=== PATIENT | male | born 1975 | race Caucasian/White ===

== ENCOUNTER 2016-09-16 15:10 | Observation (INO) | payer OTHER, MEDICAID ==
[2016-09-16 15:54] VITALS: O2SAT 98; BMI 24.7
[2016-09-16] MEDS ORDERED: Sodium Chloride 0.9% 1,000 ML IV STA ×2 (16:20→19:40)
--- NOTE | 2016-09-16 17:25 | ED PDOC ---
Arrival/HPI - General Chief Complaint: GI Problem Time Seen by Provider: 09/16/16 16:19 Historian: Patient - History of Present Illness Narrative History of Present Illness (Text): 09/16/16 17:21 40-year-old male presents today with a 5 day history of subjective fevers at home with cough and nasal congestion sore throat and frontal headache. Patient states he's been feeling dizzy. Patient states both his and his daughter has similar symptoms that just recently started. Patient denies chest pain or shortness of breath. He is complaining of low back pain but states that he hasn' t really been getting around a lot because he feels very fatigued. Patient states he has been unable to eat any food although he denies any abdominal pain. No other complaints Past Medical History - Provider Review Nursing Documentation Reviewed: Yes - Travel History Have you recently traveled outside [place] w/in the past 3 mons?: No - Past History Past History: No Previous - Tetanus Immunization Tetanus Immunization: Unknown - Cardiac Hx Cardiac Disorders: No - Pulmonary Hx Respiratory Disorders: No - Neurological Hx Neurological Disorder: No - HEENT Hx HEENT Disorder: Yes (dental pain) - Renal Hx Renal Disorder: No - Endocrine/Metabolic Hx Endocrine Disorders: No - Hematological/Oncological Hx Blood Disorders: No - Integumentary Hx Dermatological Disorder: No - Musculoskeletal/Rheumatological Hx Musculoskeletal Disorders: No Hx Falls: No - Gastrointestinal Hx Gastrointestinal Disorders: No - Genitourinary/Gynecological Hx Genitourinary Disorders: No - Psychiatric Hx Psychophysiologic Disorder: No Hx Substance Use: No - Suicidal Assessment Feels Threatened In Home Enviroment: No Family/Social History - Physician Review Nursing Documentation Reviewed: Yes Family/Social History: Unknown Family HX Smoking Status: Never Smoked Hx Alcohol Use: No Hx Substance Use: No Hx Substance Use Treatment: No Allergies/Home Meds Allergies/Adverse Reactions: Allergies No Known Allergies Allergy (Verified 08/10/12 20:12) Review of Systems - Review of Systems Constitutional: Fatigue. absent: Fevers ENT: Sore Throat, Sinus Congestion Respiratory: Cough. absent: SOB Cardiovascular: absent: Chest Pain, Palpitations Gastrointestinal: Nausea, Vomiting. absent: Abdominal Pain, Constipation, Diarrhea Genitourinary Male: absent: Dysuria, Frequency, Hematuria Musculoskeletal: Back Pain. absent: Arthralgias, Neck Pain Skin: absent: Rash, Pruritis Neurological: Headache, Dizziness Psychiatric: absent: Anxiety, Depression Physical Exam Vital Signs Reviewed: Yes Vital Signs Temp Pulse Resp BP Pulse Ox 09/17/16 00:22 16 98 09/16/16 22:38 76 14 100/69 09/16/16 22:22 97.8 F 69 16 110/69 98 09/16/16 18:35 63 18 108/68 98 09/16/16 16:33 68 18 110/70 98 09/16/16 15:52 97.2 F L 69 16 90/58 L 98 Temperature: Afebrile Blood Pressure: Normal Pulse: Regular Respiratory Rate: Normal Appearance: Positive for: Well-Appearing, Non-Toxic, Comfortable Pain Distress: None Mental Status: Positive for: Alert and Oriented X 3 - Systems Exam Head: Present: Atraumatic Pupils: Present: PERRL Extroacular Muscles: Present: EOMI Conjunctiva: Present: Normal Ears: Present: Normal, NORMAL TM. No: Erythema Mouth: Present: Moist Mucous Membranes. No: Drooling, Trismus Pharnyx: Present: Normal. No: ERYTHEMA, EXUDATE, TONSILS ENLARGED, Peritonsilar Swelling, Uvular Deviation, Muffled/Hoarse Voice Nose (External): Present: Atraumatic Nose (Internal): Present: Normal Inspection Neck: Present: Normal Range of Motion, Trachea Midline. No: Meningeal Signs, MIDLINE TENDERNESS, Paraspinal Tenderness, Lymphadenopathy Respiratory/Chest: Present: Clear to Auscultation, Good Air Exchange. No: Respiratory Distress, Accessory Muscle Use Cardiovascular: Present: Regular Rate and Rhythm, Normal S1, S2. No: Murmurs Abdomen: Present: Normal Bowel Sounds. No: Tenderness, Distention, Peritoneal Signs, Rebound, Guarding Back: Present: Normal Inspection. No: CVA Tenderness, Midline Tenderness, Paraspinal Tenderness Upper Extremity: Present: Normal ROM Lower Extremity: Present: Normal ROM Neurological: Present: GCS=15, Speech Normal Skin: Present: Warm, Dry, Normal Color. No: Rashes Psychiatric: Present: Alert, Oriented x 3 Medical Decision Making ED Course and Treatment: 09/16/16 17:24 40-year-old male with fever 5 days with cough and nasal congestion sore throat headache and dizziness. Feeling fatigued. Positive sick contacts at home. CBC wnl CMP wnl Amylase wnl Lipase wnl trop; wnl ekg; normal sinus rhythm with sinus arrhythmia at 79 bpm normal axis normal intervals no ST elevations Urinalysis: Trace ketones Chest x-ray: No infiltrate or effusion CT of the head: FINDINGS: Brain: Unremarkable. No hemorrhage. No significant white matter disease. No edema. Ventricles: Unremarkable. No ventriculomegaly. Bones/joints: Unremarkable. No acute fracture. Soft tissues: Unremarkable. Sinuses: Paranasal sinusitis is noted. Mastoid air cells: Unremarkable as visualized. No mastoid effusion. IMPRESSION: No acute findings Patient with slightly orthostatic vital signs. We will give a second bolus of normal saline as the patient has ketones in the urine and is feeling fatigued and hasnt eaten or really had much to drink in 5 days. after 2nd bolus of NS pt feeling better; vitals improved; old visit reviewed; pt seems to have low blood pressure regularly. pt reassessment; pt feeling better after medications; denies headache or dizziness. pt states fluids have helped alot. i discussed all results in depth with the patient and advised f/u with the pmd tomorrow. pt states both his and his daughter are now with the same symptoms he has had. i have advised immediate return if symptoms worsen, persist or if new symptoms develop. Patient verbalizes understanding of discharge instructions and need for immediate followup. all aspects of this case were discussed the attending of record. Impression: fatigue, dizziness, cough, viral syndrome. Motrin every 6 hours as needed for pain/fever reduction Increase fluids Follow-up with a primary care physician tomorrow Return immediately if symptoms worsen persist or if new concerning symptoms develop - RAD Interpretation Radiology Orders: 09/16/16 16:29 CHEST TWO VIEWS (PA/LAT) [RAD] Stat - Medication Orders Current Medication Orders: Discontinued Medications Sodium Chloride (Sodium Chloride 0.9%) 1,000 mls @ 999 mls/hr IV .Q1H1M STA Stop: 09/16/16 17:20 Last Admin: 09/16/16 17:45 Dose: 999 MLS/HR eMAR Start Stop Document 09/16/16 17:45 SS (Rec: 09/16/16 17:45 SS [id number]) Intravenous Solution Start Date 09/16/16 Start Time 17:45 End Date 09/16/16 End time 18:46 Total Infusion Time 61 Sodium Chloride (Sodium Chloride 0.9%) 1,000 mls @ 999 mls/hr IV .Q1H1M STA Stop: 09/16/16 20:40 Last Admin: 09/16/16 19:44 Dose: 999 MLS/HR eMAR Start Stop Document 09/16/16 19:44 SS (Rec: 09/16/16 19:44 SS [id number]) Intravenous Solution Start Date 09/16/16 Start Time 19:44 End Date 09/16/16 End time 20:45 Total Infusion Time 61 Ketorolac Tromethamine (Toradol) 30 mg IVP STAT STA Stop: 09/16/16 16:51 Last Admin: 09/16/16 17:49 Dose: 30 MG IVP Administration Document 09/16/16 17:49 SS (Rec: 09/16/16 17:49 SS [id number]) Charges for Administration # of IVP Administrations 1 Ondansetron HCl (Zofran Inj) 4 mg IVP STAT STA Stop: 09/16/16 16:30 Last Admin: 09/16/16 17:49 Dose: 4 MG IVP Administration Document 09/16/16 17:49 SS (Rec: 09/16/16 17:49 SS [id number]) Charges for Administration # of IVP Administrations 1 ED OBSERVATION Discharge: Yes Date of observation admission: 09/16/16 Time of observation admission: 16:30 - Observation admission statement Patient is being placed in observation because:: pt with fatigue, dizziness, weakness, subjective fevers x 5 days. nausea and decreased appetite - Goals of Observation Goals of observation are:: will observe for hydration and improvement in symptoms - Progress Note Progress Note: 09/16/16 18:30 pt feeling better, still feeling fatigued. 09/16/16 20:45 pt feeling better; vital stable. 09/16/16 22:50 walking around ER. eating and sandwich 09/17/16 00:12 Patient feeling better after 2 L of fluid, Zofran and Toradol. Ambulating with a steady gait. Denies headache or dizziness at present time. All results reviewed with the patient. Stressed the importance of follow-up with his primary care physician tomorrow Disposition/Present on Arrival - Present on Arrival Any Indicators Present on Arrival: No History of DVT/PE: No History of Uncontrolled Diabetes: No Urinary Catheter: No History of Decub. Ulcer: No History Surgical Site Infection Following: None - Disposition Have Diagnosis and Disposition been Completed?: Yes Diagnosis: Fatigue, Dizziness, Cough Disposition: HOME/ ROUTINE Disposition Time: 00:09 Patient Plan: Discharge Condition: GOOD
[2016-09-16 18:06] LABS: ADD MANUAL DIFF? NO
[2016-09-16 18:22] LABS: ALB/GLOB RATIO 1.2 (1.1-1.8); ALKALINE PHOSPHATASE 64 U/L (38-133); ALT/SGPT 50 U/L (7-56); AMYLASE 95 U/L (35-125); AST/SGOT 33 U/L (15-59); BILIRUBIN,TOTAL 0.7 mg/dL (0.2-1.3); BLOOD UREA NITROGEN 17 mg/dL (7-21); CALCIUM 8.8 mg/dL (8.4-10.5); CARBON DIOXIDE 30 mmol/L (21-33); CHLORIDE 99 mmol/L (98-107); GFR AFRICAN-AMERICAN > 60; GLUCOSE,RANDOM 100 mg/dL (70-110); LIPASE 128 U/L (23-300); POTASSIUM 4.2 mmol/L (3.6-5.0); SODIUM 139 mmol/L (132-148); TOTAL PROTEIN 7.6 g/dL (5.8-8.3)
[2016-09-16 18:28] LABS: BASO # 0.01 K/mm3 (0.0-2.0); BASO % 0.3 % (0.0-3.0); EOS % 0.3 % (1.5-5.0); GRAN # 1.47 (1.4-6.5); GRAN % 40.3 % (50.0-68.0); LYMPH # 1.6 (1.2-3.4); LYMPH % 44.5 % (22.0-35.0); MEAN CELL VOLUME 81.5 fL (80.0-105.0); MEAN CORPUSCULAR HEMOGLOBIN 27.9 pg (25.0-35.0); MEAN CORPUSCULAR HGB CONC 34.3 g/dl (31.0-37.0); MEAN PLATELET VOLUME 10.9 fl (7.0-11.0); MONO # 0.5 (0.1-0.6); MONO % 14.6 % (1.0-6.0); PLATELET COUNT 178 10^3/uL (120.0-450.0); WHITE BLOOD COUNT 3.6 10^3/ul (4.5-11.0)
[2016-09-16 18:33] LABS: TROPONIN I < 0.01 ng/mL
[2016-09-16 20:41] LABS: URINE BILIRUBIN SMALL (NEGATIVE); URINE BLOOD NEGATIVE (NEGATIVE); URINE GLUCOSE (UA) NEGATIVE (NEGATIVE); URINE KETONE TRACE mg/dL (NEGATIVE); URINE LEUKOCYTE ESTERASE NEGATIVE Leu/uL (NEGATIVE); URINE PROTEIN 30 mg/dL (<30 mg/dL); URINE UROBILINOGEN 0.2 E.U./dL (<1 E.U./dL)
[2016-09-16 20:42] LABS: URINE APPEARANCE CLEAR (CLEAR); URINE COLOR YELLOW (YELLOW)
[2016-09-16 20:54] LABS: URINE BACTERIA FEW (NEG); URINE EPITHELIAL CELLS 0 - 2 /hpf (0-5); URINE RBC NEGATIVE /hpf (0-2); URINE WBC 0 - 2 /hpf (0-6)
[2016-09-16 22:23] VITALS: TEMP 97.8
[2016-09-16 22:58] VITALS: BP 100/69; PULSE 76
[2016-09-17 00:23] VITALS: RESP 16
--- NOTE | 2016-09-17 07:35 | CT ---
PROCEDURE: CT HEAD WITHOUT CONTRAST. HISTORY: Dizziness x 5 days COMPARISON: None available. TECHNIQUE: Axial computed tomography images were obtained through the head/brain without intravenous contrast. Radiation dose: Total exam DLP = 725.84 mGy-cm. This CT exam was performed using one or more of the following dose reduction techniques: Automated exposure control, adjustment of the mA and/or kV according to patient size, and/or use of iterative reconstruction technique. FINDINGS: HEMORRHAGE: No intracranial hemorrhage. BRAIN: Mendes-white matter differentiation is preserved. There is no mass, mass effect or abnormal extra-axial fluid collection VENTRICLES: The ventricles are normal in size, shape and configuration. CALVARIUM: Within normal limits. PARANASAL SINUSES: There is moderate mucoperiosteal thickening in the ethmoid air cells and left sphenoid chamber. MASTOID AIR CELLS: Predominantly clear. OTHER FINDINGS: None. IMPRESSION: No acute intracranial abnormality.
--- NOTE | 2016-09-17 09:08 | RAD ---
HISTORY: Fever COMPARISON: No prior. TECHNIQUE: Chest PA and lateral FINDINGS: LUNGS: The lungs are well inflated and clear. PLEURA: No significant pleural effusion identified. No pneumothorax apparent. CARDIOVASCULAR: Normal. OSSEOUS STRUCTURES: No significant abnormalities. VISUALIZED UPPER ABDOMEN: Normal. OTHER FINDINGS: None. IMPRESSION: No active pulmonary disease.
--- NOTE | 2016-09-17 09:21 | CARD ---
APPROVED REPORT EKG Measurement Heart [id number] MO [id number] <Conclusion> Normal sinus rhythm with sinus arrhythmia PRWP V 1 - 4 Small Q in 3
== END 2016-09-16 21:37 | disposition home or self-care (01) ==
LOC: ED 15:10 → EROBSV 16:30
PROVIDERS: ADMIT Student in an Organized Health Care Education/Training Program; ATTEND Student in an Organized Health Care Education/Training Program
DX: R42 Dizziness and giddiness (principal); R05 Cough; R53.83 Other fatigue
CPT/HCPCS: 70450; 71020; 80053; 81001; 82150; 82550; 83615; 83690; 84484; 85025; 87070; 87430; 87804; 93005; 96361; 96374; 96375; 99285; G0378; J1885; J2405; J7040

== ENCOUNTER 2017-07-14 10:36 | Emergency (ER) | payer MEDICAID, OTHER ==
[2017-07-14 10:37] VITALS: BMI 24.7
[2017-07-14 10:52] VITALS: TEMP 98.2
[2017-07-14] MEDS ORDERED: Sodium Chloride 0.9% 1,000 ML IV STA (11:26)
--- NOTE | 2017-07-14 11:26 | ED PDOC ---
Arrival/HPI - General Chief Complaint: Fever Time Seen by Provider: 07/14/17 11:14 Historian: Patient - History of Present Illness Narrative History of Present Illness (Text): 07/14/17 11:14 Calos Buitrago is a 41 year old male who presents to the emergency department complaining of a fever with associated chills, non-productive coughs , and lack of appetite for the past 5 days. Patient states that he can only tolerate orange juice and water. Patient denies any vomiting, diarrhea, urinary symptoms, or any other complaints at this time. Patient is not a smoker but is an occasional drinker. Time/Duration: < week Symptom Onset: Gradual Symptom Course: Unchanged Severity Level: Mild Activities at Onset: Light Context: Home Associated Symptoms (Text): 07/14/17 13:10 Several day history of flulike symptoms which are not improving. Past Medical History - Provider Review Nursing Documentation Reviewed: Yes - Past History Past History: No Previous - Infectious Disease Hx of Infectious Diseases: None - Tetanus Immunization Tetanus Immunization: Unknown - Cardiac Hx Cardiac Disorders: No - Pulmonary Hx Respiratory Disorders: No - Neurological Hx Neurological Disorder: No - HEENT Hx HEENT Disorder: No - Renal Hx Renal Disorder: No - Endocrine/Metabolic Hx Endocrine Disorders: No - Hematological/Oncological Hx Blood Disorders: No - Integumentary Hx Dermatological Disorder: No - Musculoskeletal/Rheumatological Hx Musculoskeletal Disorders: No - Gastrointestinal Hx Gastrointestinal Disorders: No - Genitourinary/Gynecological Hx Genitourinary Disorders: No - Psychiatric Hx Psychophysiologic Disorder: No Hx Substance Use: No - Suicidal Assessment Feels Threatened In Home Enviroment: No Family/Social History - Physician Review Nursing Documentation Reviewed: Yes Family/Social History: No Known Family HX Smoking Status: Never Smoked Hx Alcohol Use: No Hx Substance Use: No Hx Substance Use Treatment: No Allergies/Home Meds Allergies/Adverse Reactions: Allergies No Known Allergies Allergy (Verified 07/14/17 10:52) Review of Systems - Physician Review All systems were reviewed & negative as marked: Yes - Review of Systems Constitutional: Fevers, Night Sweats Eyes: absent: Vision Changes ENT: absent: Hearing Changes Respiratory: Cough Cardiovascular: absent: Chest Pain Gastrointestinal: absent: Abdominal Pain, Diarrhea, Vomiting Genitourinary Male: absent: Dysuria, Frequency Musculoskeletal: absent: Arthralgias, Back Pain Skin: absent: Rash, Pruritis Endocrine: absent: Diaphoresis Hemo/Lymphatic: absent: Adenopathy Psychiatric: absent: Anxiety, Depression Physical Exam Vital Signs Reviewed: Yes Vital Signs Temp Pulse Resp BP Pulse Ox 07/14/17 13:02 80 14 111/65 96 07/14/17 10:49 98.2 F 73 96 H 100/61 18 L Temperature: Afebrile Blood Pressure: Normal Respiratory Rate: Tachypneic Appearance: Positive for: Well-Appearing, Non-Toxic, Comfortable Pain Distress: None Mental Status: Positive for: Alert and Oriented X 3 - Systems Exam Head: Present: Atraumatic, Normocephalic Pupils: Present: PERRL Extroacular Muscles: Present: EOMI Conjunctiva: Present: Normal Mouth: Present: Moist Mucous Membranes Neck: Present: Normal Range of Motion Respiratory/Chest: Present: Clear to Auscultation, Good Air Exchange. No: Respiratory Distress, Accessory Muscle Use Cardiovascular: Present: Regular Rate and Rhythm, Normal S1, S2. No: Murmurs Abdomen: Present: Normal Bowel Sounds. No: Tenderness, Distention, Peritoneal Signs Back: Present: Normal Inspection Upper Extremity: Present: Normal Inspection. No: Cyanosis, Edema Lower Extremity: Present: Normal Inspection. No: Edema Neurological: Present: GCS=15, CN II-XII Intact, Speech Normal Skin: Present: Other (Fever blisters to left lip) Psychiatric: Present: Alert, Oriented x 3, Normal Insight, Normal Concentration Medical Decision Making ED Course and Treatment: 07/14/17 11:27 Impression: 41 year old male complaining of fever with associated chills, non-productive coughs, and lack of appetite for 5 days. Plan: -- Labs -- IV fluids -- Reassess and disposition Prior Visits: Notes and results from previous visits were reviewed. Patient was last seen in the emergency department on 09/16/16 for a 5 day history of subjective fevers at home with cough and nasal congestion sore throat and frontal headache. Patient was discharged home. Progress Notes: 07/14/17 13:35 Symptoms mildly improved with IV fluids. Patient does not appear ill or toxic. He needs a note for work. He will be discharged home accompanied by his daughter. - Lab Interpretations Lab Results: 07/14/17 12:29 07/14/17 12:29 Lab Results 07/14/17 12:29: Sodium 139, Potassium 4.2, Chloride 98, Carbon Dioxide 28, Anion Gap 16, BUN 19, Creatinine 1.0, Est GFR ( Amer) > 60, Est GFR (Non- Af Amer) > 60, Random Glucose 94, Calcium 8.7, Total Bilirubin 0.5, AST 34, ALT 42, Alkaline Phosphatase 52, Total Protein 7.0, Albumin 3.9, Globulin 3.1, Albumin/Globulin Ratio 1.3 07/14/17 12:29: Influenza Typ A,B (EIA) Negative for flu a/b 07/14/17 12:29: WBC 3.2 L, RBC 5.49, Hgb 15.6, Hct 45.5, MCV 82.9, MCH 28.4, MCHC 34.3, RDW 12.7, Plt Count 152, MPV 11.0, Gran % 36.2 L, Lymph % (Auto) 48.8 H, Kidder % (Auto) 14.4 H, Eos % (Auto) 0.0 L, Baso % (Auto) 0.6, Gran # 1.16 L, Lymph # (Auto) 1.6, Kidder # (Auto) 0.5, Eos # (Auto) 0.0, Baso # (Auto) 0.02 I have reviewed the lab results: Yes - Medication Orders Current Medication Orders: Discontinued Medications Sodium Chloride (Sodium Chloride 0.9%) 1,000 mls @ 1,000 mls/hr IV .Q1H STA Stop: 07/14/17 12:25 Last Admin: 07/14/17 11:30 Dose: 1,000 mls/hr eMAR Start Stop Document 07/14/17 11:30 RG (Rec: 07/14/17 12:51 RG [id number]) Intravenous Solution Start Date 07/14/17 Start Time 11:30 - Scribe Statement The provider has reviewed the documentation as recorded by the Patria Martinez Provider Scribe Attestation: All medical record entries made by the Scribe were at my direction and personally dictated by me. I have reviewed the chart and agree that the record accurately reflects my personal performance of the history, physical exam, medical decision making, and the department course for this patient. I have also personally directed, reviewed, and agree with the discharge instructions and disposition. Disposition/Present on Arrival - Present on Arrival Any Indicators Present on Arrival: No History of DVT/PE: No History of Uncontrolled Diabetes: No Urinary Catheter: No History of Decub. Ulcer: No History Surgical Site Infection Following: None - Disposition Have Diagnosis and Disposition been Completed?: Yes Diagnosis: Fatigue, Viral syndrome Disposition: HOME/ ROUTINE Disposition Time: 13:36 Patient Plan: Discharge Condition: IMPROVED Discharge Instructions (ExitCare): Viral Syndrome (ED) Additional Instructions: Symptomatic treatment. Tylenol or Advil as directed on bottle as needed. Follow- up with PMD. Follow up in ER as needed. Prescriptions: Ondansetron [Zofran Odt] 4 mg SL Q6 #20 odt Forms: [employer] ([place]ian), WORK NOTE
[2017-07-14 12:47] LABS: BASO # 0.02 K/mm3 (0.0-2.0); BASO % 0.6 % (0.0-3.0); GRAN # 1.16 (1.4-6.5); GRAN % 36.2 % (50.0-68.0); HEMOGLOBIN 15.6 g/dL (14.0-18.0); LYMPH # 1.6 (1.2-3.4); LYMPH % 48.8 % (22.0-35.0); MEAN CELL VOLUME 82.9 fl (80.0-105.0); MEAN CORPUSCULAR HEMOGLOBIN 28.4 pg (25.0-35.0); MEAN CORPUSCULAR HGB CONC 34.3 g/dl (31.0-37.0); MONO # 0.5 (0.1-0.6); MONO % 14.4 % (1.0-6.0); RBC 5.49 10^6/uL (3.5-6.1); RED CELL DISTRIBUTION WIDTH 12.7 % (11.5-14.5); WHITE BLOOD COUNT 3.2 10^3/ul (4.5-11.0)
[2017-07-14 12:50] LABS: ALB/GLOB RATIO 1.3 (1.1-1.8); ALBUMIN 3.9 g/dL (3.0-4.8); ALT/SGPT 42 U/L (7-56); AST/SGOT 34 U/L (17-59); BLOOD UREA NITROGEN 19 mg/dL (7-21); CALCIUM 8.7 mg/dL (8.4-10.5); GFR AFRICAN-AMERICAN > 60; GFR NON-AFRICAN AMERICAN > 60
[2017-07-14 13:02] VITALS: BP 111/65; PULSE 80; RESP 14; O2SAT 96
== END 2017-07-14 14:10 | disposition home or self-care (01) ==
LOC: ED 10:36
DX: B34.9 Viral infection, unspecified (principal); R53.83 Other fatigue
CPT/HCPCS: 80053; 85025; 87804; 99283; J7040